=== PATIENT | female | born 1960 | race Caucasian/White ===

== ENCOUNTER 2018-12-18 18:25 | Observation (INO) | payer BC ==
[~2018-12-18 18:25] MED LIST: Dexamethasone 20 MG/5 ML VIAL ONE; Ketorolac Tromethamine 30 MG/ML VIAL ONE; Lidocaine 1% PF 5 ML VIAL ONE; Ondansetron PF 4 MG/2 ML Vial ONE; PROPOFOL 200 MG/20 ML VIAL ONE
[2018-12-18] MEDS ORDERED: Fentanyl 250 MCG/5 ML VIAL ONE (19:02)
[2018-12-18] MEDS ORDERED: Lidocaine 2% 11 ML SYR ONE (19:05)
[2018-12-18] MEDS ORDERED: Bupivacaine PF 0.5% 30 ML VIAL ONE ×2 (19:28→21:38)
[2018-12-18] MEDS ORDERED: Thrombin 5000 UNITS/5 ML VIAL ONE (19:28)
[2018-12-18] MEDS ORDERED: Bacitracin Zinc Ointment 30 gm TUBE ONE (19:28)
[2018-12-18] MEDS ORDERED: Sodium Chloride 0.9% 30 ML ONE (19:28)
[2018-12-18 19:57] LABS: #Basophils 0.1 thou/uL (0.0-0.2); #Eosinphils 0.2 thou/uL (0.0-0.7); #Monocytes 0.7 thou/uL (0.11-0.59); #Neutrophils 6.1 thou/uL (1.40-6.50); %Basophils 1.3 % (0.0-1.0); %Eosinophils 1.8 % (0.0-10.0); %Lymphocytes 29.7 % (21.0-51.0); %Monocytes 7.3 % (0.0-10.0); Hemoglobin 14.1 g/dL (12.0-16.0); Mean Corpuscular HGB CONC 34.2 g/dL (32.0-36.0); Mean Corpuscular Hemoglobin 32.2 pg (27.0-31.0); Mean Corpuscular Volume 94.3 fL (78.0-98.0); Mean Platelet Volume 8.1 fL (7.4-10.4); Platelet Count 193 thou/uL (130-400); RBC Distribution Width 11.7 % (11.5-14.5); Red Blood Cell (RBC) Count 4.37 mill/uL (4.20-5.40); White Blood Cell (WBC) Count 10.1 thou/uL (4.8-10.8)
[2018-12-18] MEDS ORDERED: Midazolam HCl 2 mg/2 ml Vial ONE (20:36)
[2018-12-18] MEDS ORDERED: Fentanyl 100 MCG/2 ML VIAL ONE (20:36)
[2018-12-18] MEDS ORDERED: Bisacodyl 10 MG SUPP PR PRN (20:43)
[2018-12-18] MEDS ORDERED: Fentanyl 100 MCG/2 ML VIAL SLOW IVP PRN (20:43)
[2018-12-18] MEDS ORDERED: Ondansetron PF 4 MG/2 ML Vial IV PRN (20:43)
[2018-12-18] MEDS ORDERED: Milk Of Magnesia 30 ML UDCUP PO PRN (20:43)
[2018-12-18] MEDS ORDERED: traMADol HCl 50 MG TAB PO PRN (20:43)
[2018-12-18] MEDS ORDERED: RENALLY ADJUST ALL ANTIBIOTICS IVPB PRN (20:45)
[2018-12-18] MEDS ORDERED: Ketorolac Tromethamine 30 MG/ML VIAL IVP PRN (20:48)
[2018-12-18] MEDS ORDERED: Meperidine HCl/PF 25 MG/ML VIAL IM PRN (20:48)
[2018-12-18] MEDS ORDERED: Ampicillin/Sulbactam 3 GM in Sodium Chloride 0.9% 100 ML IVPB SCH (22:00)
[2018-12-18] MEDS ORDERED: HYDROmorphone 2 MG/ML VIAL SLOW IVP PRN (22:13)
[2018-12-18] MEDS ORDERED: Labetalol HCl 100 MG/20 ML VIAL SLOW IVP PRN (22:13)
[2018-12-18] MEDS ORDERED: Promethazine HCl 25 MG/ML VIAL SLOW IVP PRN (22:13)
[2018-12-18] MEDS ORDERED: PACU-Morphine 4MG/ML VIAL SLOW IVP PRN (22:13)
[2018-12-18] MEDS ORDERED: Promethazine HCl 25 MG/ML VIAL IM PRN (22:13)
[2018-12-18] MEDS ORDERED: Ondansetron HCl/PF 4 MG/2 ML Vial IVP PRN (22:13)
[2018-12-18] MEDS: Aspirin 81 mg Enteric Coated Tablet PO SCH (23:28)
[2018-12-18] MEDS: Morphine 4 MG/ML VIAL SLOW IVP PRN (23:42)
[2018-12-18] MEDS: Ampicillin/Sulbactam 3 GM in Sodium Chloride 0.9% 100 ML IVPB SCH (23:43)
[2018-12-19 06:31] LABS: #Lymphocytes 1.1 thou/uL (1.20-3.40); #Monocytes 0.2 thou/uL (0.11-0.59); #Neutrophils 11.4 thou/uL (1.40-6.50); %Basophils 0.1 % (0.0-1.0); %Eosinophils 0.2 % (0.0-10.0); %Lymphocytes 8.4 % (21.0-51.0); %Monocytes 1.6 % (0.0-10.0); %Neutrophils 89.8 % (42.0-75.0); Hemoglobin 13.7 g/dL (12.0-16.0); Mean Corpuscular HGB CONC 33.4 g/dL (32.0-36.0); Mean Corpuscular Hemoglobin 31.9 pg (27.0-31.0); Mean Corpuscular Volume 95.5 fL (78.0-98.0); Mean Platelet Volume 8.3 fL (7.4-10.4); Platelet Count 193 thou/uL (130-400); RBC Distribution Width 11.8 % (11.5-14.5); White Blood Cell (WBC) Count 12.7 thou/uL (4.8-10.8)
[2018-12-19] MEDS: Ampicillin/Sulbactam 3 GM in Sodium Chloride 0.9% 100 ML IVPB SCH ×3 (08:13→23:45)
[2018-12-19] MEDS ORDERED: TETANUS AND DIPHTHERIA TOX/PF 0.5 ML DISP.SYRIN IM SCH (09:00)
[2018-12-19] MEDS: Aspirin 81 mg Enteric Coated Tablet PO SCH ×2 (09:07→21:22)
[2018-12-19] MEDS: Vancomycin HCl 1 GM in Premix Bag 1 BAG IVPB SCH ×2 (09:07→21:22)
--- NOTE | 2018-12-19 10:42 | OP ---
DATE OF PROCEDURE: 12/18/2018 PREOPERATIVE DIAGNOSES: Left flexor digitorum profundus and superficialis infected tenosynovectomy with sheath abscess and tenosynovitis. POSTOPERATIVE DIAGNOSES: Left flexor digitorum profundus and superficialis infected tenosynovectomy with sheath abscess and tenosynovitis, with gross purulence found in the flexor sheath and rather where it had burst between the A3 esthela and A4 esthela. PROCEDURES PERFORMED: 1. Radical flexor tenosynovectomy, left index finger flexor digitorum superficialis. 2. Radical flexor digitorum profundus tenosynovectomy, left index finger. 3. Flexor sheath abscess drainage. 4. Arthrotomy of the PIP joint, left index finger with negative findings for infection. INJECTABLE: 20 mL 0.5% Marcaine, divided equally between the all four incisions. ESTIMATED BLOOD LOSS: 50 mL. TOURNIQUET TIME: 36 minutes. INDICATIONS: The patient with a cat bite, came to the clinic with Kanavel's sign beginning just proximal to the PIP joint and coursing all the way into the palm, had a white blood cell count that was normal, but this has been a rapid progressive infection with clinical Kanavel's sign. DESCRIPTION OF PROCEDURE: After successful anesthesia by [employer], the patient had the wound identified, the limb was identified. Time-out was done and a time-out matched the site, procedure, and side of the consent. We then exsanguinated the limb and inflated the tourniquet to 250 mmHg pressure. We made a zigzag incision, outlined, centered over the base of the A3 esthela, down to the level of the A2 esthela, and just proximal to the A1 esthela. Made another zigzag incision. Also made an incision just distal to the A4 esthela. To all three sites, we found purulence only in the more proximal 2 sites, not distally. We also did arthrotomy because of the swelling and a cat bite eyal over the dorsal of the PIP joint and made an arthrotomy between the central slip and the nail bed, and here we found no evidence of abnormality, purulence, or synovitis. It was a negative arthrotomy, but we irrigated with 100 mL through a catheter. The flexor sheath revealed marked purulence, thickening with tenosynovitis, which underwent a radical tenosynovectomy of the flexor digitorum profundus and superficialis. We also found purulence escaping just at the A4 esthela and proximal, so here flexor tenosynovectomy was accomplished as well. We then irrigated the sheath with a total of 250 mL, 200 mL alternating between proximal and distal orientation between the A3 esthela and A4 esthela, and then, the same between A3 and the distal portion of the A4 esthela. We then left a catheter in place, irrigated the entire area with 3 L of normal saline, Pulsavac inside. There was no further purulence subcutaneous within the tendon sheath with final irrigation of the sheath using the Pollack catheter. The Pollack remained with a bulky dressing. There was excellent hemostasis and the digit was pink. Most of the flexion attitude of the finger was now resolved clinically. The patient left the operating room without evidence of anesthetic or operative complication. Job ID: [id number]
[2018-12-19] MEDS: HYDROcodone/Acetaminophen 5/325 mg Tablet PO PRN (17:47)
[2018-12-20] MEDS: Morphine 4 MG/ML VIAL SLOW IVP PRN (00:42)
[2018-12-20] MEDS: HYDROcodone/Acetaminophen 5/325 mg Tablet PO PRN ×2 (00:50→15:38)
[2018-12-20 05:54] LABS: Eosinophils 2 % (0-10); Hemoglobin 12.2 g/dL (12.0-16.0); Lymphocytes 32 % (21-51); MDiff Complete? YES; Mean Corpuscular HGB CONC 32.8 g/dL (32.0-36.0); Mean Corpuscular Hemoglobin 31.2 pg (27.0-31.0); Mean Corpuscular Volume 95.2 fL (78.0-98.0); Mean Platelet Volume 8.3 fL (7.4-10.4); Monocytes 3 % (0-10); Neutrophil 62 % (42-75); Platelet Count 195 thou/uL (130-400); Platelet Morphology Comment Appears Adequate; RBC Distribution Width 11.9 % (11.5-14.5); Red Blood Cell (RBC) Count 3.92 mill/uL (4.20-5.40); White Blood Cell (WBC) Count 9.6 thou/uL (4.8-10.8)
[2018-12-20 08:26] LABS: Vancomycin, Trough 12.3 ug/mL
[2018-12-20] MEDS: Aspirin 81 mg Enteric Coated Tablet PO SCH (08:43)
[2018-12-20] MEDS: Ampicillin/Sulbactam 3 GM in Sodium Chloride 0.9% 100 ML IVPB SCH (08:43)
[2018-12-20] MEDS: Vancomycin HCl 1 GM in Premix Bag 1 BAG IVPB SCH (09:42)
[2018-12-20] MEDS ORDERED: Vancomycin HCl 1.25 GM in Sodium Chloride 0.9% 250 ML 250 ML IVPB SCH (10:00)
[2018-12-20 12:03] VITALS: BP 123/57; TEMP 97.9
--- NOTE | 2018-12-20 19:36 | DIS ---
DATE OF ADMISSION: 12/18/2018 DATE OF DISCHARGE: 12/20/2018 ADMISSION DIAGNOSIS: Flexor tendon sheath abscess to cat bite wound with subcutaneous abscess. DISCHARGE DIAGNOSIS: Flexor tendon sheath abscess to cat bite wound with subcutaneous abscess. HOSPITAL PROCEDURES: 1. Incision and drainage of abscess, subcutaneous, cat bite, dorsal left index finger. 2. Incision and drainage of abscess, complex, index finger. 3. Tendon sheath irrigation. 4. Radical flexor tenosynovectomy, palmar aspect, flexor digitorum profundus and superficialis. HOSPITAL COURSE: The patient was admitted because of Kanavel's signs, 2-1/2-year old cat bite with definite evidence of a left index finger flexor sheath involvement and underwent operative intervention. The date of evaluation in the clinic December 18, 2018, where she was found to have gross purulence from within tendon sheath and some subcutaneous infection as well. Both were irrigated with tendon sheath irrigation of 300 mL using Pollack catheter and then subcutaneous irrigation with high-pressure Pulsavac. The wounds were dressed open, and initial white blood cell count, which is high as 15,000, by 36 hours out the procedure and was now down to 9000, normal. She underwent 2 dressing changes, was able to oppose the index finger to the thumb at the level of [place] 7 and prepared for discharge maneuver, shown to have no gross infection. Cultures at the time of discharge were not complete and did not show any growth. DISCHARGE PLAN: The patient will continue with triple antibiotics, Bactrim, and rifampin in case it is Staph and Augmentin already initiated by primary care in case it is pasteurella-type bacteria. Follow up with us in 48 hours with dressing change and evaluation. The patient then had the dressing change available so that she will follow up with us at 08:30 on . Job ID: [id number]
== END 2018-12-20 15:49 | disposition home or self-care (01) ==
LOC: SDC 18:25 → 3SE 22:30
PROVIDERS: ADMIT Orthopaedic Surgery Hand Surgery; ATTEND Orthopaedic Surgery Hand Surgery
PROC: 0LB80ZZ Excision of Left Hand Tendon, Open Approach (ICD-10-PCS; principal; 2018-12-18)
DX: M65.142 Other infective (teno)synovitis, left hand (principal); M65.042 Abscess of tendon sheath, left hand; W55.01XA Bitten by cat, initial encounter; Z90.49 Acquired absence of other specified parts of digestive tract; Z79.899 Other long term (current) drug therapy; Z98.890 Other specified postprocedural states
CPT/HCPCS: 36415; 80202; 85007; 85025; 85027; 85652; 87070; 87077; 87205; 96365; 96375; 96376; C1758; G0378; J0295; J1100; J1885; J2001; J2250; J2270; J2405; J2704; J3010; J3370; J3490; J7050; S0020

== ENCOUNTER 2018-12-27 06:58 | Day surgery (SDC) | payer BC ==
[2018-12-25 13:54] VITALS: BMI 32.3
[2018-12-27] MEDS ORDERED: Famotidine/PF 20 mg/2ml Vial ONE (07:05)
[2018-12-27 07:31] LABS: #Basophils 0.1 thou/uL (0.0-0.2); #Eosinphils 0.2 thou/uL (0.0-0.7); #Lymphocytes 2.9 thou/uL (1.20-3.40); #Monocytes 0.4 thou/uL (0.11-0.59); %Basophils 1.5 % (0.0-1.0); %Eosinophils 2.8 % (0.0-10.0); %Lymphocytes 44.5 % (21.0-51.0); %Monocytes 5.4 % (0.0-10.0); %Neutrophils 45.7 % (42.0-75.0); Hemoglobin 14.9 g/dL (12.0-16.0); Mean Corpuscular HGB CONC 32.8 g/dL (32.0-36.0); Mean Corpuscular Hemoglobin 31.2 pg (27.0-31.0); Mean Corpuscular Volume 95.1 fL (78.0-98.0); Mean Platelet Volume 7.8 fL (7.4-10.4); Platelet Count 247 thou/uL (130-400); RBC Distribution Width 11.8 % (11.5-14.5); Red Blood Cell (RBC) Count 4.77 mill/uL (4.20-5.40); White Blood Cell (WBC) Count 6.5 thou/uL (4.8-10.8)
[2018-12-27] MEDS ORDERED: Bupivacaine PF 0.5% 30 ML VIAL ONE (08:02)
[2018-12-27] MEDS ORDERED: Thrombin 5000 UNITS/5 ML VIAL ONE ×2 (08:09→08:23)
[2018-12-27] MEDS ORDERED: Bacitracin Zinc Ointment 30 gm TUBE ONE ×2 (08:09→08:23)
[2018-12-27] MEDS ORDERED: Sodium Chloride 0.9% 30 ML ONE (08:23)
[2018-12-27] MEDS ORDERED: Midazolam HCl 2 mg/2 ml Vial ONE (08:31)
[2018-12-27] MEDS ORDERED: Fentanyl 100 MCG/2 ML VIAL ONE (11:28)
[2018-12-27] MEDS ORDERED: PROPOFOL 200 MG/20 ML VIAL ONE (13:52)
[2018-12-27] MEDS ORDERED: Lidocaine 1% PF 5 ML VIAL ONE (13:52)
[2018-12-27] MEDS ORDERED: Dexamethasone 20 MG/5 ML VIAL ONE (13:52)
[2018-12-27] MEDS ORDERED: Ondansetron PF 4 MG/2 ML Vial ONE (13:52)
[2018-12-27] MEDS ORDERED: Ketorolac Tromethamine 30 MG/ML VIAL ONE (13:52)
--- NOTE | 2018-12-29 11:52 | OP ---
DATE OF PROCEDURE: 12/27/2018 PREOPERATIVE DIAGNOSIS: Left index finger 7-cm wound involving palm of hand, index finger region and index finger . PROCEDURES PERFORMED: 1. Debridement of the wound. a. Use combination of [place]chise blade, tenotomy scissor, Adson, curette. b. Incision of depth down to and including the tendon area [id number] depth but not bone or joint. 2. Closure of wound, 7 cm with combination of two 3-cm wound and one 1-cm wound. FINDINGS: 1. No gross infection or gross tenosynovitis, flexor tendon pull through excursion to about 5 cm short of the palm with tendon pull and passively full motion. 2. No gross infection of tenosynovitis. INDICATIONS: Returns for staged wound management. DESCRIPTION OF PROCEDURE: After successful general LMA technique, the limb was prepped and draped. We augmented the anesthesia with 10 mL of 0.5% Marcaine block, divided equally amongst the 2 main incisions. We then exsanguinated the limb and inflated the tourniquet to 250 mmHg pressure. We then gently dissected each of the incisions, performed the debridement, used the techniques listed above, irrigated each incision with 200 mL of normal saline with antibiotics inside using bulb syringe technique. We released the tourniquet, obtained hemostasis. Tourniquet total time was 8 minutes. We then closed the wounds individually with interrupted 4-0 nylon in a simple pattern. Bulky dressing was applied with a loosely applied gauze over the digit to allow motion and the patient left the operating room with a pink digit. No evidence of anesthetic or operative complication. Job ID: [id number]
--- NOTE | 2018-12-31 05:36 | PQF ---
[facility] POST DISCHARGE CLINICAL DOCUMENTATION IMPROVEMENT CLARIFICATION FORM l Todays Date: 12/31/18 l Patients Name KEYON WALL l l Admit Date 12/27/18 l Disch Date 12/27/18 Hog Worker Name Princess Sandy Gay Email: @[employer] Cell: [phone] To be completed by Hog Worker: Present Clinical Indicators - Signs / Symptoms Results and Location in Medical Record [ ] Documentation of: [ ] [ ] Documentation of: [ ] [ ] Documentation of: [ ] [ ] Documentation of: [ ] [ ] Risks [ ] [ ] [ ] Treatment [ ] Debridement of index finger wound Physician query for the area size of debrided wound [ ] [ ] To be completed by Physician: CRYSTAL SHELBY The documentation in this patients record requires clarification to ensure coding compliance and accuracy. Check the appropriate box and include in your discharge summary. [ ] [ ] [ ] [ ] Please check this box if this does not apply to this patient [ ] Unable to determine [ ] Other diagnosis: Review the following information and exercise your independent professional judgment in responding to the clarification. Based upon the clinical findings, risk factors, and treatment, please clarify if you are treating one of the above probable or suspected diagnoses. Physician Signature: Date Time MTDD
== END 2018-12-27 13:30 | disposition home or self-care (01) ==
LOC: SDC 06:58
PROVIDERS: ATTEND Orthopaedic Surgery Hand Surgery
PROC: 0LD80ZZ Extraction of Left Hand Tendon, Open Approach (ICD-10-PCS; principal; 2018-12-27)
DX: S61.201A Unspecified open wound of left index finger without damage to nail, initial encounter (principal); Z90.49 Acquired absence of other specified parts of digestive tract; Z79.82 Long term (current) use of aspirin; Z79.2 Long term (current) use of antibiotics; Z79.899 Other long term (current) drug therapy; Z98.890 Other specified postprocedural states
CPT/HCPCS: 36415; 85025; 85652; J0131; J1100; J1885; J2001; J2250; J2405; J2704; J3010; J3490; S0020; S0028

== ENCOUNTER 2019-08-28 06:38 | Outpatient (CLI) | payer BC ==
[2019-08-28 10:27] LABS: #Basophils 0.1 thou/uL (0.0-0.2); #Eosinphils 0.2 thou/uL (0.0-0.7); #Monocytes 0.5 thou/uL (0.11-0.59); #Neutrophils 3.4 thou/uL (1.40-6.50); %Basophils 1.3 % (0.0-1.0); %Neutrophils 46.7 % (42.0-75.0); Hemoglobin 15.1 g/dL (12.0-16.0); Mean Corpuscular HGB CONC 33.7 g/dL (32.0-36.0); Mean Corpuscular Hemoglobin 31.7 pg (27.0-31.0); Mean Corpuscular Volume 94.3 fL (78.0-98.0); Mean Platelet Volume 8.2 fL (7.4-10.4); Platelet Count 215 thou/uL (130-400); RBC Distribution Width 12.1 % (11.5-14.5); Red Blood Cell (RBC) Count 4.75 mill/uL (4.20-5.40); White Blood Cell (WBC) Count 7.2 thou/uL (4.8-10.8)
[2019-08-28 10:49] LABS: Anion Gap 13 mmol/L (10-20); BUN (Urea Nitrogen) 16 mg/dL (9.8-20.1); Calc. Creatinine Clearance 0 mL/min (70-130); Calcium 10.9 mg/dL (7.8-10.44); Carbon Dioxide 28 mmol/L (22-29); Chloride 104 mmol/L (98-107); Estimated GFR-MDRD 66; Glucose 105 mg/dL (70-105); Sodium 141 mmol/L (136-145)
== END 2019-08-28 06:39 | disposition home or self-care (01) ==
LOC: LABBT 06:38
PROVIDERS: ATTEND Orthopaedic Surgery Hand Surgery
DX: Z01.812 Encounter for preprocedural laboratory examination (principal); M62.442 Contracture of muscle, left hand
CPT/HCPCS: 80048; 85025

== ENCOUNTER 2019-09-01 06:48 | Day surgery (SDC) | payer BC ==
[2019-08-28 09:38] VITALS: BMI 38.2
[2019-09-01] MEDS ORDERED: Fentanyl 100 MCG/2 ML VIAL ONE ×2 (08:42→10:44)
[2019-09-01] MEDS ORDERED: Midazolam HCl 2 mg/2 ml Vial ONE (08:42)
[2019-09-01] MEDS ORDERED: Bacitracin Zinc Ointment 30 gm TUBE ONE (08:43)
[2019-09-01] MEDS ORDERED: Betamet Acet/Betamet Na Ph 30 MG/5 ML VIAL ONE (08:43)
[2019-09-01] MEDS ORDERED: Sodium Chloride 0.9% 10 ML ONE (08:43)
[2019-09-01] MEDS ORDERED: hydrALAZINE 20 MG/ML VIAL ONE (10:39)
[2019-09-01] MEDS ORDERED: HYDROcodone/Acetaminophen 5/325 mg Tablet ONE (11:48)
[2019-09-01] MEDS ORDERED: Ketorolac Tromethamine 30 MG/ML VIAL ONE (11:53)
[2019-09-01] MEDS ORDERED: PROPOFOL 200 MG/20 ML VIAL ONE (11:53)
[2019-09-01] MEDS ORDERED: Dexamethasone 20 MG/5 ML VIAL ONE (11:53)
[2019-09-01] MEDS ORDERED: Ondansetron PF 4 MG/2 ML Vial ONE (11:53)
--- NOTE | 2019-09-01 18:01 | OP ---
DATE OF PROCEDURE: 09/01/2019 PREOPERATIVE DIAGNOSES: 1. Joint contracture, PIP joint, left index finger. 2. Flexor adhesions, palm and digit, left middle finger and flexor sheath contracture. FINDINGS: 1. Adhesions, PIP joint, palmar much greater than dorsal. 2. Scarring of the tendon sheath from the left base of the A3 esthela all the way on top of the A2 and A4 esthela and proximal to that about 1 cm marked tenosynovial swelling. PROCEDURES PERFORMED: 1. Palmar capsulectomy, index finger PIP joint. 2. Via the open palmar joint, capsulotomy, dorsal capsule of the PIP joint. 3. Checkrein ligament release. 4. Digital nerve neuroplasty, radial and ulnar under magnification. 5. Flexor tenolysis, digit and palm. 6. Flexor digitorum profundus and superficialis. 7. A1 esthela release. SPECIMEN SENT: Flexor sheath adhesions. TOURNIQUET TIME: 38 minutes. ESTIMATED BLOOD LOSS: 24 mL. INDICATIONS FOR PROCEDURE: Prior infection, flexor sheath abscess that extended to the level of the A1 esthela, has lost extension of 25 degrees active and passive and cannot flex beyond 70 degrees at the MP joint and PIP joint. DESCRIPTION OF PROCEDURE: After successful general endotracheal anesthesia, we outlined previous incisions, where the proximal half of the proximal phalanx had been uninvolved, so we connected these and then extended it 2 cm proximal to the A1 esthela approach. After exsanguination of the limb and inflation of the tourniquet, we gave a total of 20 mL of 0.5% Marcaine block and then proceeded with the incision. Incision was carried through skin and subcutaneous tissue and was marked scar between the skin and tendon sheath. We then went ahead and did a formal digital nerve neuroplasty, radial and ulnar and found the vascular portion and the bundle as well and spared these with combination of blunt and sharp dissection. During this time, we the skin adhesions that went from the skin to the sheath as well and resected them. We then did a formal tenolysis, removing the distal half of the A3 esthela, all the flexor sheath and adhesions to the level of the A2 esthela, very thick scar was found of the A2 esthela. We excised this with a [place]quois blade and then with direct visualization and protection of the neurovascular bundle performed it same over the A1 esthela, then performed the A1 estheal release. Once we finished the formal tenosynovectomy, we lifted up the flexor tendon and from the level of the A1 esthela proximally, there was marked tenosynovial thickening and tenosynovitis, so we performed a flexor tenosynovectomy of the flexor digitorum profundus and superficialis as well. The flexor tendon was free from any possible adhesions to the bone, from each other with a formal tenosynovectomy, and when we did a glide test at the very proximal end near the edge of the carpal tunnel, we could bring the tip of the flexor tendon within 3 mm of the palm. We also had achieved full extension once relieved the checkrein and volar capsule on both sides passively and with tenodesis effect. Thus, we did not feel a dorsal incision was indicated. We released the tourniquet. We had excellent hemostasis. The digit was pink. We placed 5 mL of Celestone along the tendon sheath, let it sit for 2 to 3 minutes and then closed it with simple 4-0 nylon interrupted pattern. A bulky dressing was applied. The patient will have therapy the next day. Job ID: [id number]
== END 2019-09-01 12:30 | disposition home or self-care (01) ==
LOC: SDC 06:48
PROVIDERS: ATTEND Orthopaedic Surgery Hand Surgery
PROC: 0RNX0ZZ Release Left Finger Phalangeal Joint, Open Approach (ICD-10-PCS; principal; 2019-09-01)
PROC: 0LN80ZZ Release Left Hand Tendon, Open Approach (ICD-10-PCS; principal; 2019-09-01)
PROC: 0LB80ZZ Excision of Left Hand Tendon, Open Approach (ICD-10-PCS; principal; 2019-09-01)
DX: M62.442 Contracture of muscle, left hand (principal); M65.842 Other synovitis and tenosynovitis, left hand; Z79.82 Long term (current) use of aspirin; Z79.899 Other long term (current) drug therapy
CPT/HCPCS: 88304; 89060; J0360; J0690; J0702; J2250; J3010; J3490